=== PATIENT | female | born 1990 | race Caucasian/White ===

== ENCOUNTER 2021-12-11 13:15 | Emergency (ER) | payer OTHER ==
[2021-12-11 14:47] LABS: HEMOGLOBIN 12.8 gm/dl (12.3-15.3); RED BLOOD COUNT 4.21 M/UL (4.00-5.10); WHITE BLOOD COUNT 5.9 K/UL (4.5-11.0)
[2021-12-11 15:01] LABS: BUN/CREATININE RATIO 11 (0-10)
[2021-12-11] MEDS ORDERED: KEPPRA500 MG PO (16:21)
== END 2021-12-11 16:38 | disposition home or self-care (01) ==
LOC: ER1 13:15
PROVIDERS: Family Medicine
DX: G40.909 Epilepsy, unspecified, not intractable, without status epilepticus (principal); Z91.14 Patient's other noncompliance with medication regimen; F11.10 Opioid abuse, uncomplicated; F10.10 Alcohol abuse, uncomplicated
CPT/HCPCS: 80048; 80307; 81001; 84703; 85025; 96374; 99285; J1953

== ENCOUNTER 2021-12-28 20:59 | Emergency (ER) | payer OTHER ==
[~2021-12-28 20:59] MED LIST: KEPPRA500 MG PO
[2021-12-28 21:23] LABS: HEMOGLOBIN 13.2 gm/dl (12.3-15.3); RED BLOOD COUNT 4.47 M/UL (4.00-5.10); WHITE BLOOD COUNT 4.3 K/UL (4.5-11.0)
[2021-12-28 21:42] LABS: BUN/CREATININE RATIO 6 (0-10)
[2021-12-29] MEDS ORDERED: CEPHALEXIN500 M1 PO (01:28)
[2021-12-29] MEDS ORDERED: KEPPRA750 MG PO (01:28)
== END 2021-12-29 07:36 | disposition home or self-care (01) ==
LOC: ER1 20:59
PROVIDERS: Physician Assistant
DX: G40.909 Epilepsy, unspecified, not intractable, without status epilepticus (principal); N39.0 Urinary tract infection, site not specified; Z88.2 Allergy status to sulfonamides; Z79.899 Other long term (current) drug therapy
CPT/HCPCS: 80053; 80307; 81001; 84703; 85025; 87086; 96374; 99284; J1953